=== PATIENT | male | born 1965 | race Two or more races ===

== ENCOUNTER → 2020-07-24 | Emergency (ER) | payer OTHER ==
[~2020-07-24] VITALS: Ht 177.8 cm; Wt 156.0 kg
[~2020-07-24] MED LIST: AZOR 5-20 MG T1 EACH; LOSARTAN-HCTZ1 EAC1
== END | disposition home or self-care (01) ==
LOC: ER 03:54
DX: R19.7 Diarrhea, unspecified (principal); R50.9 Fever, unspecified; R06.02 Shortness of breath; K52.9 Noninfective gastroenteritis and colitis, unspecified

== ENCOUNTER → 2020-07-30 08:10 | Outpatient (CLI) | payer OTHER | END | disposition home or self-care (01) | LOC: LAB 08:10 | PROVIDERS: ATTEND Internal Medicine Gastroenterology | DX: R19.7 Diarrhea, unspecified (principal) ==